=== PATIENT | female | born 1945 | race Caucasian/White ===

== ENCOUNTER → 2023-07-14 10:16 | Outpatient (REF) | payer MEDICARE, SELFPAY | LOC: MRI 3T 10:16 | PROVIDERS: ATTENDING PHYSICIAN Internal Medicine Gastroenterology; FAMILY PHYSICIAN Internal Medicine | DX: K86.2 Cyst of pancreas (principal) | CPT/HCPCS: 74183; A9575 ==

== ENCOUNTER → 2023-09-19 13:51 | Outpatient (REF) | payer MEDICARE, SELFPAY | LOC: WDC 13:51 | PROVIDERS: ATTENDING PHYSICIAN Internal Medicine | DX: R92.2 Inconclusive mammogram (principal) | CPT/HCPCS: 76641 ==

== ENCOUNTER → 2023-12-19 16:09 | Outpatient (REF) | payer MEDICARE, OTHER, SELFPAY | LOC: WDC 16:09 | PROVIDERS: ATTENDING PHYSICIAN Obstetrics & Gynecology Gynecology; FAMILY PHYSICIAN Internal Medicine | DX: Z12.31 Encounter for screening mammogram for malignant neoplasm of breast (principal) | CPT/HCPCS: 77063; 77067 ==

== ENCOUNTER → 2024-06-20 12:48 | Outpatient (REF) | payer MEDICARE, OTHER, SELFPAY | LOC: RAD 12:48 | PROVIDERS: ATTENDING PHYSICIAN Internal Medicine; FAMILY PHYSICIAN Internal Medicine; REFERRING PHYSICIAN Obstetrics & Gynecology Gynecology | DX: M85.80 Other specified disorders of bone density and structure, unspecified site (principal); M81.0 Age-related osteoporosis without current pathological fracture | CPT/HCPCS: 77080 ==

== ENCOUNTER → 2024-08-05 09:41 | Outpatient (REF) | payer MEDICARE, OTHER, SELFPAY | LOC: WDC 09:41 | PROVIDERS: ATTENDING PHYSICIAN Obstetrics & Gynecology Gynecology; FAMILY PHYSICIAN Internal Medicine | DX: R92.2 Inconclusive mammogram (principal); Z85.3 Personal history of malignant neoplasm of breast | CPT/HCPCS: 76641 ==

== ENCOUNTER → 2024-10-22 13:43 | Outpatient (REF) | payer MEDICARE, OTHER, SELFPAY | LOC: HWRCS 13:43 | PROVIDERS: ATTENDING PHYSICIAN Internal Medicine Cardiovascular Disease; FAMILY PHYSICIAN Internal Medicine | DX: R07.89 Other chest pain (principal) | CPT/HCPCS: 93306 ==

== ENCOUNTER → 2024-11-07 09:03 | Outpatient (REF) | payer MEDICARE, OTHER, SELFPAY | LOC: RCS 09:03 | PROVIDERS: ATTENDING PHYSICIAN Internal Medicine Cardiovascular Disease; FAMILY PHYSICIAN Internal Medicine | DX: R07.89 Other chest pain (principal) | CPT/HCPCS: 78452; 93017; A9500 ==

== ENCOUNTER → 2024-11-10 12:03 | Outpatient (REF) | payer MEDICARE, OTHER, SELFPAY | LOC: PAVMRI 12:03 | PROVIDERS: ATTENDING PHYSICIAN Psychiatry & Neurology Neurology; FAMILY PHYSICIAN Internal Medicine | DX: G43.E09 Chronic migraine with aura, not intractable, without status migrainosus (principal) | CPT/HCPCS: 70551 ==

== ENCOUNTER → 2025-01-22 12:50 | Outpatient (REF) | payer MEDICARE, OTHER, SELFPAY | LOC: WDC 12:50 | PROVIDERS: ATTENDING PHYSICIAN Obstetrics & Gynecology Gynecology; FAMILY PHYSICIAN Internal Medicine; REFERRING PHYSICIAN Psychiatry & Neurology Neurology | DX: I63.9 Cerebral infarction, unspecified (principal); H81.4 Vertigo of central origin; Z12.31 Encounter for screening mammogram for malignant neoplasm of breast; I72.0 Aneurysm of carotid artery | CPT/HCPCS: 77063; 77067; 93880 ==

== ENCOUNTER → 2025-05-13 15:44 | Outpatient (REF) | payer MEDICARE, OTHER, SELFPAY | LOC: RAD 15:44 | PROVIDERS: ATTENDING PHYSICIAN Internal Medicine | DX: G89.29 Other chronic pain (principal) | CPT/HCPCS: 72110 ==

== ENCOUNTER 2025-06-02 08:46 | Emergency (ER) | payer MEDICARE, OTHER, SELFPAY ==
[2025-06-02 08:51] VITALS: BP 117/65
[2025-06-02 09:08] VITALS: BMI 27.3
--- NOTE | 2025-06-02 09:13 | ED.GENMED ---
History of Present Illness
General
Chief Complaint: Urinary Symptoms
Source: patient
Exam Limitations: none
Time Seen by Provider: 06/02/25 09:02
History of Present Illness
History of Present Illness:
79-year-old female with A-fib and SSS/sinus as well as Klebsiella urinary tract infection presents with complaints of recurrence of urinary symptoms starting 3 days ago. Symptoms include increased frequency urgency and dysuria. She denies fevers
or vomiting. She was recently treated with fosfomycin for her Klebsiella UTI however symptoms recurred. She spoke with her infectious disease team last evening and they advised she come in here for further evaluation. She may need PICC line and
IV antibiotics. No chest pain or shortness of breath. No other complaints
Past History
Past History
ED Past Medical History: Other (Migraines)
ED Past Surgical History: None
Social History
Tobacco: Non-smoker
Personal:
Phy Exam
Physical Exam
Physical Exam:
General: Well-appearing female no acute respiratory distress
HEENT: Normal cephalic atraumatic
Heart: Regular rate and rhythm lungs: Clear no wheeze
Abdomen soft nontender
Extremities: No cyanosis
Course
Orders/Labs/Results
Orders:
Orders
06/02/25 10:30
Ertapenem [Invanz] 1,000 mg 0.9% Sodium Chloride [Nss] 50 ml IV Q24H
06/02/25 10:40
Urinalysis Reflex To Culture Urgent
Date Specimen was Collected: 06/02/25
Time Specimen was Collected: 10:40
06/02/25 12:00
Ertapenem [Invanz] 1,000 mg 0.9% Sodium Chloride [Nss] 50 ml IV Q24H
Vital Signs
Initial and Last Documented VS:
Initial Vital Signs
Temp Pulse Resp BP Pulse Ox
97.9 F 85 20 117/65 94
06/02/25 08:51 06/02/25 08:51 06/02/25 08:51 06/02/25 08:51 06/02/25 08:51
Last Documented Vital Signs
Temp Pulse Resp BP Pulse Ox
97.9 F 85 18 117/65 96
06/02/25 08:51 06/02/25 08:51 06/02/25 10:43 06/02/25 08:51 06/02/25 09:30
MDM/Problems Addressed
Differential Diagnosis Includes:
Recurrence of urinary symptoms including dysuria urgency frequency. Recent Klebsiella UTI and was advised to come here for potential PICC line placement. Patient looks well overall. Urinalysis ordered. Notified infectious disease
*Pulse Oximetry
SaO2: 94
Oxygen Mode of Delivery: Room air
Patient hypoxic: no
*Critical Care Note
Total Time (30-74mins, 75-104mins- exclusive of procedures): Not Applicable
Update Note
Update Note:
Patient evaluated by infectious disease. The patient's dysuria has since resolved. Infectious disease has been started on any antibiotics currently as this may be a flare of her interstitial cystitis. Patient in agreement. No indication for any
further intervention. Stable for discharge
ED Attending Note
-
Portions of this chart may have been created with voice recognition software.� Occasional wrong word or��sound alike� substitutions may have occurred due to the inherent limitations of voice recognition software.
Discharge Plan
Departure
Patient Disposition: Home (Routine Discharge)
Date of Disposition: 06/02/25
Time of Disposition: 11:21
Patient with high blood pressure during this ER visit?: No
Discharge Problem:
Dysuria
Prescriptions:
No Action
jgvpdwn-gpnvjphobyyzo-sybvrjhd [Excedrin Migraine] 250-250-65 mg Tablet
1 tab PO DAILYPRN PRN (Reason: migraine)
meclizine 25 mg Tablet
25 mg PO [id number] PRN (Reason: dizziness)
calcium citrate-vitamin D3 [Citracal plus D] 315 mg-5 mcg (200 unit) Tablet
2 tab PO DAILY
Theragen Tablet
1 tab PO DAILY
acetaminophen [Tylenol Ex Str Arthritis Pain] 500 mg Tablet
1,000 mg PO [id number] PRN (Reason: mild pain)
omeprazole 20 mg Capsule,Delayed Release(Dr/Ec)
20 mg PO DAILY
hydrochlorothiazide 25 mg Tablet
25 mg PO DAILYPRN PRN (Reason: fluid retention)
carboxymethylcellulose sodium [Refresh] 1 % Drops, Liquid Gel
1 drp BOTH EYES Q1H
omega 9-ept-fsb-fish oil [Fish Oil] 1,200 (144-216) mg Capsule
1 cap PO DAILY
cranberry conc-ascorbic acid 4,200-20 mg Capsule
1 cap PO DAILY
Align (B.longum)
1 cap PO DAILY
cephalexin 500 mg Capsule
500 mg PO HS
Referrals:
Rashel Whelan MD [Family Provider, Internal Medicine]
Activity Restrictions/Additional Instructions:
Please return here if worse otherwise follow-up with your doctor
Interventions
Interventions:
*General Assessment Last Done: 06/02/25 08:51
*Neglect/Abuse Screening Last Done: 06/02/25 08:51
*ED COVID-19 Vaccine History Last Done: 06/02/25 09:08
*ED Influenza Vaccine History Last Done: 06/02/25 09:08
[facility] Fall Risk Assessment Tool Last Done: 06/02/25 09:08
*Risk Screen - Suicide (C-SSRS) Last Done: 06/02/25 09:08
ED-Female Genitourinary Assessment Last Done: 06/02/25 09:08
Discharge Date and Time
Print Language: CROATIAN
[2025-06-02 11:01] LABS: Urine Character Clear (Clear)
--- NOTE | 2025-06-02 11:17 | CON.ID ---
Addendum entered and electronically signed by Cely Brown MD 06/03/25 11:32:
Ucx: no growth. Called and informed pt.
Original Note:
Consultation
-
Date/Time Consultation Requested: June 02, 2025
Date/Time Consultation Performed: June 02, 2025
Requesting Provider: Favian Sparks
Performing Provider: Dr. Cely Brown
Reason for Consultation: Dysuria
Chief Complaint / Past History
Chief Complaint
Pain with urination
History of Present Illness
79-year-old well-known to me on an outpatient basis with history of interstitial cystitis, UTI, who presented to the ED today due to several day history of dysuria. Patient is currently on cephalexin suppressive therapy for recurrent UTI. However
recently she had breakthrough symptomatic UTI with multidrug resistant Klebsiella pneumonia. On May 19, 2025, I prescribed empiric fosfomycin 3 g p.o. every 48 hours x 3 doses. She reports symptoms resolved. She was good for 2 weeks until
May 30 when dysuria started again. She had severe pain in the beginning of urination and also with increased urine frequency. She waited a few days to see if it is the interstitial cystitis versus UTI. Usually with IC, symptoms would
resolve in 3 days. Her symptoms persisted and therefore she called infectious disease office on Monday. The ID on-call physician recommended she come to the ER this morning for IV antibiotic. In ED, she is afebrile. Patient denies fevers chills.
No flank pain. Patient reports the severe dysuria has resolved since coming to the ER. She submitted urine sample without pain. She just urinated again without dysuria. She always has baseline urinary frequency. She feels well.
Past History
Additional Past Medical History:
Migraine headaches
Interstitial cystitis
Recurrent UTI
Dyslipidemia
Diverticulosis
L4-L5 herniated disc
History of right breast cancer status postlumpectomy
Right incarcerated herniahernia repair
Allergy History:
cefdinir Allergy (Verified 06/02/25 08:57)
Unknown
diclofenac Allergy (Verified 06/02/25 08:57)
Nausea / Vomiting
doxycycline Allergy (Verified 06/02/25 08:57)
headaches
magnesium Allergy (Verified 06/02/25 08:57)
diarrhea
sulfamethoxazole (From Bactrim) Allergy (Verified 06/02/25 08:57)
vaginal and rectal itching
tamoxifen Allergy (Verified 06/02/25 08:57)
Unknown
trimethoprim (From Bactrim) Allergy (Verified 06/02/25 08:57)
vaginal and rectal itching
Medications Reviewed: Yes
Current Antibiotics:
None
Social History
Tobacco: Non-Smoker
Alcohol: None
Drug: None
Personal:
Living: With Family
Family History
Family History: Not Pertinent
Review of Systems
Review of Systems
General: Negative Fever, Chills or Change in Appetite
HEENT: Negative Sinus Problems
Cardiovascular: Negative Chest Pain
Respiratory: Negative Dyspnea or Cough
Gasteroenterology: Negative Nausea, Vomiting or Diarrhea
Genital / Urological: Negative Hematuria or Flank Pain
Endocrine: Negative Weakness
All systems: All other systems were reviewed and were negative
Vital Signs
Temp Pulse Resp BP Pulse Ox
97.9 F 85 18 117/65 96
06/02/25 08:51 06/02/25 08:51 06/02/25 10:43 06/02/25 08:51 06/02/25 09:30
Physical Exam
Physical Exam
Constitutional: No Acute Distress and Comfortable
Eyes: No Conjunctival Hemorrhage and Sclera Anicteric
Cardiovascular: Regular Rate
Pulmonary: Clear
Gastrointestinal: Soft, Non Tender, Non Distended and Normal Bowel Sounds
Genito-Urinary: Negative CVA Tenderness
Extremities: Negative Edema
Neurological: AO x 3
Assessment / Plan
# Dysuria�spontaneously resolved
# Interstitial cystitis
# Recurrent UTI on cephalexin suppressive therapy
# Recent history of MDR�Klebsiella UTI treated with empiric fosfomycin 3 g p.o. every 48 hours x 3 days in mid May.
Suspect patient's symptoms due to interstitial cystitis.
Dysuria resolved without intervention which suggest against urinary tract infection.
Explained to patient that even if urine is positive for bacteria, there is no indication to treat with antibiotic if she remains asymptomatic.
Commend observe off of antibiotic.
She can be discharged to home and follow-up with me as scheduled.
Care Review
Plan reviewed with: Physician (Clare)
[2025-06-02 11:29] VITALS: BP 127/62
[2025-06-02 12:07] LABS: Urine Red Blood Cell None Seen /HPF (0-2)
== END 2025-06-02 11:29 | disposition home or self-care (01) ==
LOC: EMR 08:46
PROVIDERS: Physician Assistant; EMERGENCY PHYSICIAN Emergency Medicine; FAMILY PHYSICIAN Internal Medicine
DX: R30.0 Dysuria (principal); E78.5 Hyperlipidemia, unspecified; I48.91 Unspecified atrial fibrillation; Z16.24 Resistance to multiple antibiotics; Z85.3 Personal history of malignant neoplasm of breast; Z87.440 Personal history of urinary (tract) infections; Z88.1 Allergy status to other antibiotic agents; Z88.2 Allergy status to sulfonamides
CPT/HCPCS: 99282; 81003; 81015; 87086; J1335